=== PATIENT | male | born 1970 | race Caucasian/White ===

== ENCOUNTER 2021-12-22 10:36 | Emergency (ER) | payer BC, OTHER ==
[2021-12-22 11:35] LABS: ALT (SGPT) 19 U/L (8-55); AST (SGOT) 19 U/L (5-34); Albumin 3.8 g/dL (3.5-5.0); Alkaline Phosphatase 82 U/L (40-110); Anion Gap 16 mmol/L (10-20); BUN (Urea Nitrogen) 27 mg/dL (8.4-25.7); Bilirubin, Total 0.6 mg/dL (0.2-1.2); Calc. Creatinine Clearance 0 mL/min (70-130); Calcium 9.1 mg/dL (7.8-10.44); Carbon Dioxide 27 mmol/L (22-29); Chloride 103 mmol/L (98-107); Glucose 220 mg/dL (70-105); Potassium 4.2 mmol/L (3.5-5.1); Protein, Total 7.8 g/dL (6.0-8.3); Sodium 142 mmol/L (136-145)
[2021-12-22 11:44] LABS: #Eosinphils 0.1 thou/uL (0.0-0.7); #Lymphocytes 1.3 thou/uL (1.20-3.40); #Monocytes 0.6 thou/uL (0.11-0.59); #Neutrophils 3.7 thou/uL (1.40-6.50); %Basophils 0.6 % (0.0-1.0); %Lymphocytes 22.7 % (21.0-51.0); %Monocytes 9.9 % (0.0-10.0); %Neutrophils 64.8 % (42.0-75.0); Hemoglobin 12.1 g/dL (14.0-18.0); Mean Corpuscular HGB CONC 30.7 g/dL (32.0-36.0); Mean Corpuscular Hemoglobin 28.8 pg (27.0-31.0); Mean Corpuscular Volume 93.8 fL (78.0-98.0); Mean Platelet Volume 8.6 fL (7.4-10.4); Platelet Count 213 thou/uL (130-400); RBC Distribution Width 11.5 % (11.5-14.5); White Blood Cell (WBC) Count 5.7 thou/uL (4.8-10.8)
[2021-12-22] MEDS ORDERED: Sodium Chloride 0.9% 500 ML ONE (11:54)
[2021-12-22] MEDS ORDERED: Piperacillin/Tazobactam 4.5 GM VIAL ONE (11:54)
[2021-12-22] MEDS ORDERED: Sodium Chloride 0.9% 250 ML 250 ML ONE (11:55)
[2021-12-22] MEDS ORDERED: Sodium Chloride 0.9% 100 ML ONE (11:55)
== END 2021-12-22 13:17 | disposition short-term general hospital (02) ==
LOC: MADERS 10:36
DX: E11.621 Type 2 diabetes mellitus with foot ulcer (principal); L97.529 Non-pressure chronic ulcer of other part of left foot with unspecified severity; L03.90 Cellulitis, unspecified; I10 Essential (primary) hypertension; E78.5 Hyperlipidemia, unspecified; E78.00 Pure hypercholesterolemia, unspecified; Z79.4 Long term (current) use of insulin; Z87.442 Personal history of urinary calculi; Z79.899 Other long term (current) drug therapy
CPT/HCPCS: 80053; 83605; 85025; 86140; 96365; 96367; J2543; J3370; J3490; J7030; J7050

== ENCOUNTER 2024-07-15 12:08 | Outpatient (CLI) | payer BC | END 2024-07-15 12:09 | disposition home or self-care (01) | LOC: MADRAD 12:08 | PROVIDERS: ATTEND Family Medicine | DX: L03.115 Cellulitis of right lower limb (principal) ==

== ENCOUNTER 2024-07-29 10:55 | Outpatient (CLI) | payer BC | END 2024-07-29 10:56 | disposition home or self-care (01) | LOC: MADLAB 10:55 | PROVIDERS: ATTEND Family Medicine | DX: L97.421 Non-pressure chronic ulcer of left heel and midfoot limited to breakdown of skin (principal) ==